=== PATIENT | male | born 1960 | race Caucasian/White ===

== ENCOUNTER → 2016-11-16 | Day surgery (SDC) | payer OTHER ==
[~2016-11-16] MED LIST: BACTRIM DS TAB1 EACH; CIPRO; FLAGYL; FLOMAX0.4 M1; HYDROCODON-ACE1 EAC7 PO; LOC PO; MULTI-DAY VITA1 EACH; PRILOSEC20 MG
--- NOTE | ~2016-11-16 | OR ---
Unit #: [id number] #: [id number] Patient: SPIKE L[address] [id number] [facility] [address] [facility]. [place], [place] [address] [id number] O MR#: [id number] NAME: SPIKE LANE. ROOM: Date of Procedure: 11/16/2016 Admission Date: 11/16/2016 Surgeon: Paul Ga M.D. : 1960 Attending Physician: Paul Ga M.D. Primary Care Physician: Kevin Duran M.D. OPERATIVE REPORT PRIMARY CARE PHYSICIAN Dr. Keny Duran. PREOPERATIVE DIAGNOSIS Colovesical fistula. POSTOPERATIVE DIAGNOSIS Severe diverticulosis with adhesions preventing completion of the colonoscopy. PROCEDURE PERFORMED Incomplete colonoscopy to 25 cm. ANESTHESIA Monitored anesthesia. INDICATIONS FOR PROCEDURE The patient is a 56-year-old gentleman with a known history of diverticular disease and a recently diagnosed colovesical vesical fistula. He is being brought in preoperatively for assessment of his colon to define the extent of disease and rule out other pathological problems. DESCRIPTION OF PROCEDURE The patient was admitted to [facility], positively identified, and transported to the endoscopy suite where after appropriate monitoring and positioning, he was sedated by the nurse microsoft dynamics ax developer. On rectal examination, he had some perianal skin lesions worrisome for warts possible condyloma. On digital examination, the prostate was slightly enlarged, but no hard nodules were noted. There were no palpable masses. Colonoscope was passed through the anal verge and up through the rectosigmoid. At 25 cm, he had evidence of diverticulosis and he had a hairpin turn with narrowing of the lumen that was such a difficult angle and probably adhesed to the bladder that further passage of the scope would risk perforation. For this reason, the procedure was aborted. The patient was transported to recovery in stable condition. He will be readied for surgery. We will examine his colon in surgery. He may need a followup colonoscopy after he has recovered from surgery. Dictated by... Paul Ga M.D. Unit #: [id number] #: [id number] Patient: SPIKE LANE RS/randall TD: 11/16/2016 11:55 JOB #: [id number] OPERATIVE REPORT Page 1 of 1 X Paul Ga MD PROCEDURE OPERATIVE NOTE
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
--- NOTE | ~2016-11-16 | EKG ---
PATIENT: SPIKE LANE UNIT #: [id number] Ventricular Rate: 53 BPM Atrial Rate: 53 BPM P-R Interval: 120 ms QRS Duration: 86 ms Q-T Interval: 440 ms QTC Calculation(Bezet): 412 ms P [place]: -2 degrees Calculated R [place]: 79 degrees Calculated T [place]: 76 degrees Diagnosis Line: Sinus bradycardia Diagnosis Line: Otherwise normal ECG Diagnosis Line: No previous ECGs available Diagnosis Line: Confirmed by THOMAS FLYNN MD ([id number]) on Diagnosis Line: 11/16/2016 2:02:53 PM INTERPRETING MD: GEE DAMON
[2016-11-16 06:59] LABS: BASOPHIL% 0.2 % (0-2.5); EOSINOPHIL# 0.1 X10e3 (0-0.7); EOSINOPHIL% 1.2 % (0.0-7.0); HEMATOCRIT 41.2 % (38.0-50.0); HEMOGLOBIN 13.2 gm/dL (13.0-16.0); LYMPHOCYTE# 1.7 X10e3 (1.0-3.5); LYMPHOCYTE% 14.4 % (17.0-45.0); MEAN CELL VOLUME 94.2 FL (83-96); MEAN CORPUSCULAR HEMOGLOBIN 30.2 PG (28-34); MEAN PLATELET VOLUME 8.6 FL (6.5-11.5); MONOCYTE# 0.5 X10e3 (0-1.0); MONOCYTE% 4.4 % (3.0-12.0); NEUTROPHIL# 9.5 X10e3 (1.5-7.1); NEUTROPHIL% 79.8 % (40-75); PLATELET COUNT 181 X10e3 (140-420); RED BLOOD COUNT 4.38 X10e (3.90-5.60); RED CELL DISTRIBUTION WIDTH 16.1 % (11.0-15.5)
[2016-11-16 07:13] LABS: DIFF IND NO
[2016-11-16 07:27] LABS: BILIRUBIN,TOTAL 0.6 mg/dL (0.2-2.0); BUN/CREATININE RATIO 13.33; CALCIUM SERUM 8.8 mg/dL (8.4-10.2); CREATININE SERUM 0.9 mg/dL (0.6-1.4); GLOM FILT RATE Estimated 95.1 mL/min (>60); PROTEIN TOTAL SERUM 6.7 g/dL (6.0-8.3)
== END | disposition home or self-care (01) ==
LOC: COPS 05:23
PROVIDERS: Specialist
DX: K57.30 Diverticulosis of large intestine without perforation or abscess without bleeding (principal); N32.1 Vesicointestinal fistula; K66.0 Peritoneal adhesions (postprocedural) (postinfection); N40.0 Benign prostatic hyperplasia without lower urinary tract symptoms; K21.9 Gastro-esophageal reflux disease without esophagitis; F17.210 Nicotine dependence, cigarettes, uncomplicated; Z79.899 Other long term (current) drug therapy; Z87.19 Personal history of other diseases of the digestive system; Z98.890 Other specified postprocedural states
CPT/HCPCS: 80053; 85025; 93005; J1170; J2250

== ENCOUNTER 2016-11-17 05:26 | Inpatient (IN) | payer OTHER ==
--- NOTE | ~2016-11-17 | CR80 ---
[facility] A Service of [facility] RADIOLOGY TEXT RESULTS PATIENT: SPIKE LANE LOCATION: [facility] 46-01 : [birth year] UNIT #: [id number] AGE: [address]: Paul Ga MD SEX: M ORDER DR: [id number] [facility] [address] [place], [place] [address] [id number] I MR#: [id number] Acc #: [id number] NAME: SPIKE LANE. : 1960 SEX: M STUDY DATE/TIME: 11/21/2016 8:18 UNIT: [facility] ROOM: [facility] STUDY DESCRIPTION: CR Cystogram Min 3 Views SI Attending Physician: Paul Ga M.D. Ordering Physician: Irwin Zimmer Jr., M.D. Primary Care Physician: Alok Barrios M.D. MEDICAL IMAGING REPORT This report is preliminary unless electronic signature is present EXAM Cystogram INDICATION Patient underwent a colon resection with repair of a fistula to the bladder. This occurred 4 days prior to the study. Exam is requested to evaluate for leak or persistent fistula. FINDINGS Initial oil winterizer image was unremarkable. Patient is noted to have an anastomotic suture line seen within the pelvis. I subsequently instilled Cysto-Conray and multiple fluoroscopic images were obtained. This showed filling of the bladder which appeared smoothly marginated. No obvious communication with the colon or extravasation of contrast material from the bladder was seen. There was a significant post void residual. Correlation with catheter function is suggested. Total fluoroscopy time was 0.9 minutes. A total of 8 fluoroscopic images were obtained. IMPRESSION No evidence of contrast extravasation or fistulous connection between the colon and bladder. The patient did have significant postvoid residual although this may be related to catheter function. Dictated by... Isela Valenzuela M.D. THIS IS AN ELECTRONICALLY VERIFIED REPORT Isela Valenzuela M.D. at 11/24/2016 3:36 PM SUHAS/rajwinder TD: 11/24/2016 08:48 JOB #: [id number] [facility] A Service of [facility] RADIOLOGY TEXT RESULTS PATIENT: SPIKE LANE [facility] [facility] [id number] : [birth year] UNIT #: [id number] AGE: [address]: Paul Ga MD SEX: M ORDER DR: MEDICAL IMAGING REPORT Page 1 of 1 COPY
--- NOTE | ~2016-11-17 | OR ---
Unit #: [id number] #: [id number] Patient: SPIKE L[address] [id number] [facility] [address] [facility]. [place], [place] [address] [id number] I MR#: [id number] NAME: SPIKE LANE. ROOM: 464 Date of Procedure: 11/17/2016 Admission Date: 11/17/2016 Surgeon: Paul Ga M.D. : 1960 Attending Physician: Paul Ga M.D. Primary Care Physician: Alok Rockwell OPERATIVE REPORT PREOPERATIVE DIAGNOSIS Colovesical fistula. POSTOPERATIVE DIAGNOSIS Colovesical fistula. PROCEDURES PERFORMED Exploratory laparotomy, takedown of colovesical fistula with repair of bladder fistula, sigmoid colon resection with primary anastomosis. BOLT CUTTER Jarrett Vargas M.D. ANESTHESIA General endotracheal anesthesia. ESTIMATED BLOOD LOSS Less than 50 mL. INDICATIONS FOR PROCEDURE A 56-year-old gentleman with a known history of diverticular disease. He presented with pneumaturia and fecaluria and on cystoscopy, he was found to have a colovesical fistula. Preoperative colonoscopy was unable to be completed due to adhesions in the sigmoid colon. DESCRIPTION OF PROCEDURE The patient was admitted to [facility], positively identified, and transported to the operating room, and after induction of general endotracheal anesthesia, he received IV antibiotics per SCIP protocol. An orogastric tube and Bennett catheter were placed. SCDs were placed. He was placed in Kwan stirrups. The padding was used to protect the lower extremity. His abdominal wall was clipped of hair. A rectal prep was done with Betadine and he was then prepped and draped in usual sterile fashion. After being prepped and draped, a midline incision made and dissected down through the soft tissue and entered into the peritoneal cavity. The patient was placed in Trendelenburg position and the small bowel was packed in the upper abdomen. Sigmoid colon was mobilized along the line of Toldt. We took it down to the area of the bladder. The sigmoid colon was tightly adhesed to the bladder and using sharp and blunt dissection, I dissected the sigmoid colon off the bladder. I then could identify the fistulous tract into the dome of the bladder. Both the left and right ureters were identified and traced out before closing the Unit #: [id number] #: [id number] Patient: SPIKE LANE fistulous tract. The fistulous tract was closed with 2-0 Vicryl full-thickness sutures followed by a serosal inverting 2-0 silk sutures. The colon was further mobilized. The area of the colon that was affected with a diverticula was completely mobilized and then the colon was divided proximal and distal to the diverticular disease with BIRD staplers. The mesentery was sequentially clamped, divided, and ligated. Since the colonoscopy could not be completed, the specimen was sent for frozen section and on frozen section, it appeared to be inflammatory with no evidence of malignancy. To palpation, the rest of the colon appeared normal. The proximal end of the colon was adequately mobilized. The end was opened and a 29 mm EEA stapler anvil was passed through the anterior tenia and the open end was stapled and closed with BIRD stapler. I then went to the rectum, passed the EEA stapler and performed an end-to-side stapled rectosigmoid anastomosis. The doughnuts from the stapled anastomosis were checked on the back table. They were complete and intact. There was good hemostasis. I filled the pelvis with saline and clamped off the proximal colon and insufflated forcefully. There was no evidence of any air leak and the proximal colon insufflated above the anastomosis. I then re-gown and gloved and irrigated the peritoneal cavity. There was good hemostasis. The bowel was placed back in the anatomic position. Sponge, needle, and instrument counts were correct at this point. The midline fascia was then closed with #1 looped PDS suture starting one superiorly and one inferiorly and securing them together in the center. The soft tissue was irrigated with saline followed by Betadine. The skin was closed with sterile skin rachelle. Dry sterile dressing was placed. Sponges and needle counts were correct x3 at the end the case. The patient was transported to recovery in stable condition. Orogastric tube was removed, but his Bennett catheter was left in place and will be till cystogram was performed on postoperative day #4. Dictated by... Camila Suarez/randall TD: 11/17/2016 23:45 JOB #: [id number] OPERATIVE REPORT Page 1 of 1 X Paul Ga MD PROCEDURE OPERATIVE NOTE
--- NOTE | ~2016-11-17 | DS ---
Unit #: [id number] #: [id number] Patient: SPIKE [address] [id number] [address] [place], [place] [address] [id number] I MR#: [id number] NAME: SPIKE LANE ROOM: 464 Age: 56 Sex: M Admission Date: 11/17/2016 : 1960 Discharge Date: 11/22/2016 Attending Physician: Paul Ga M.D. Primary Care Physician: Alok Rockwell DISCHARGE SUMMARY HISTORY AND HOSPITAL COURSE Mr. Lane is a 56-year-old gentleman, who was diagnosed as an outpatient with a colovesical fistula. He was brought in the morning of surgery where he underwent takedown of his colovesical fistula with bladder repair and sigmoid colectomy with primary anastomosis. He was admitted to the hospital postoperatively and had an unremarkable postoperative course. He remained afebrile with stable vital signs. Once we had return of bowel function, he was able to be quickly advanced to a regular diet. On the fourth postoperative day, a cystogram was performed and it showed no leak, so his Bennett catheter was removed and today the fifth postoperative, he will be discharged home. He is instructed to undergo diet as tolerated. He may ambulate ad alec but do no lifting greater than 15 pounds or any strenuous activity. He may shower but not submerge his wound under water in a tub or a pool. He is to continue his home Flomax. A prescription for hydrocodone was left for pain control. He is to call the office and follow up in 7-10 days. Patient understood these instructions and will be discharged home in stable condition. Dictated by... Paul Ga M.D. VLADIMIR/aida TD: 11/23/2016 08:59 JOB #: [id number] DISCHARGE SUMMARY Page 1 of 1 X Paul Ga MD X DISCHARGE SUMMARY
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
[~2016-11-17 05:26] MED LIST changes: -HYDROCODON-ACE1 EAC7 PO; -LOC PO
[2016-11-18 03:36] LABS: HEMATOCRIT 35.2 % (38.0-50.0); HEMOGLOBIN 11.4 gm/dL (13.0-16.0); MEAN CELL VOLUME 94.4 FL (83-96); MEAN CORPUSCULAR HEMOGLOBIN 30.5 PG (28-34); MEAN CORPUSCULAR HGB CONC 32.3 g/dL (30-36); MEAN PLATELET VOLUME 9.4 FL (6.5-11.5); RED BLOOD COUNT 3.72 X10e (3.90-5.60); RED CELL DISTRIBUTION WIDTH 16.1 % (11.0-15.5); WHITE BLOOD COUNT 11.8 X10e3 (4.0-10.5)
[2016-11-18 04:04] LABS: CALCIUM SERUM 8.2 mg/dL (8.4-10.2); CREATININE SERUM 0.8 mg/dL (0.6-1.4); GLOM FILT RATE Estimated 99.9 mL/min (>60); MAGNESIUM 1.6 mg/dL (1.6-3.0); POTASSIUM 3.9 mmol/L (3.5-5.1)
[2016-11-20 03:32] LABS: HEMATOCRIT 39.4 % (38.0-50.0); HEMOGLOBIN 12.8 gm/dL (13.0-16.0); MEAN CORPUSCULAR HEMOGLOBIN 30.3 PG (28-34); MEAN CORPUSCULAR HGB CONC 32.6 g/dL (30-36); MEAN PLATELET VOLUME 9.4 FL (6.5-11.5); RED BLOOD COUNT 4.24 X10e (3.90-5.60); RED CELL DISTRIBUTION WIDTH 15.7 % (11.0-15.5); WHITE BLOOD COUNT 15.3 X10e3 (4.0-10.5)
[2016-11-20 07:44] LABS: ALBUMIN SERUM 3.6 g/dL (3.5-5.0); BILIRUBIN,TOTAL 0.6 mg/dL (0.2-2.0); BUN/CREATININE RATIO 8.33; CALCIUM SERUM 9.4 mg/dL (8.4-10.2); CREATININE SERUM 0.6 mg/dL (0.6-1.4); GLOM FILT RATE Estimated 112.4 mL/min (>60); POTASSIUM 4.1 mmol/L (3.5-5.1); PROTEIN TOTAL SERUM 6.6 g/dL (6.0-8.3)
[2016-11-22] MEDS ORDERED: HYDROCODON-ACE1 EAC7 PO (09:01)
[2016-11-22] MEDS ORDERED: LOC PO (09:02)
== END 2016-11-22 09:20 | disposition home or self-care (01) | DRG 330 ==
LOC: CSUR 05:26 → CPACUOF 08:36 → CSUR 08:36 → CPACUOF 09:59 → C4C 11:43 → CSUR 11-24 07:30
PROVIDERS: Specialist; Surgery
PROC: 0DBN0ZZ Excision of Sigmoid Colon, Open Approach (ICD-10-PCS; principal; 2016-11-17 07:30)
PROC: 0TQB0ZZ Repair Bladder, Open Approach (ICD-10-PCS; 2016-11-17 07:30)
DX: K57.30 Diverticulosis of large intestine without perforation or abscess without bleeding (principal); N32.1 Vesicointestinal fistula; Z68.1 Body mass index [BMI] 19.9 or less, adult; R39.89 Other symptoms and signs involving the genitourinary system; N40.0 Benign prostatic hyperplasia without lower urinary tract symptoms; F17.210 Nicotine dependence, cigarettes, uncomplicated; R63.6 Underweight
CPT/HCPCS: 74430; 80048; 80053; 82947; 83735; 84100; 85027; 88305; 88307; 88331; 94010; C9113; J0330; J1650; J1885; J2250; J2270; J2405; J2710; J2765; J3010; Q9958